=== PATIENT | male | born 1995 | race African-American/Black ===

== ENCOUNTER 2019-02-15 04:34 | Emergency (ER) | payer SELFPAY ==
[~2019-02-15] VITALS: Ht 180.3 cm; Wt 58.0 kg
[2019-02-15 08:30] VITALS: BP 129/80
== END 2019-02-15 08:45 | disposition home or self-care (01) ==
LOC: ER 04:34
DX: M25.562 Pain in left knee (principal); Z88.0 Allergy status to penicillin; W01.0XXA Fall on same level from slipping, tripping and stumbling without subsequent striking against object, initial encounter; Y93.41 Activity, dancing; Y92.018 Other place in single-family (private) house as the place of occurrence of the external cause
CPT/HCPCS: 73562; 99283; L1830; Z7610